=== PATIENT | female | born 2000 | race Caucasian/White ===

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

== ENCOUNTER 2019-12-21 10:34 | Outpatient (CLI) | payer OTHER | END 2019-12-21 23:59 | disposition home or self-care (01) | LOC: RAD 10:34 | PROVIDERS: ATTEND Physician Assistant Medical | DX: N83.02 Follicular cyst of left ovary (principal); N83.01 Follicular cyst of right ovary; N85.4 Malposition of uterus | CPT/HCPCS: 76830 ==